=== PATIENT | female | born 1980 | race African-American/Black ===

== ENCOUNTER 2024-01-21 04:36 | Emergency (ER) | payer OTHER ==
[~2024-01-21] VITALS: Ht 172.7 cm; Wt 107.2 kg
[2024-01-21 05:00] VITALS: BP 144/74; PULSE 58; RESP 16; TEMP 98; O2SAT 99
[2024-01-21] MEDS: KETOROLAC TROMETH 60MG/2ML VIAL IM ONE (06:50)
[2024-01-21] MEDS ORDERED: IBUP-1455 PO (06:55)
== END 2024-01-21 07:04 | disposition home or self-care (01) ==
LOC: ER 04:36
DX: M54.12 Radiculopathy, cervical region (principal); Z88.1 Allergy status to other antibiotic agents
CPT/HCPCS: 96372; 99283; J1885